=== PATIENT | female | born 1985 | race Caucasian/White ===

== ENCOUNTER 2018-06-01 23:26 | Emergency (ER) | payer MEDICAID ==
[~2018-06-01] VITALS: Ht 137.2 cm; Wt 78.4 kg
[~2018-06-01 23:26] MED LIST: PREN1TAB49
[2018-06-01 23:29] VITALS: Ht 137.2 cm; Wt 78.4 kg
[2018-06-02] MEDS ORDERED: ONDANSETRON 4 MG INJ IV STA (00:12)
[2018-06-02] MEDS ORDERED: SOD CHLORIDE 0.9% 1,000 ML IV ONE (00:30)
--- NOTE | 2018-06-02 00:31 | ERD ---
ER Documentation Chief Complaint Chief Complaint suprapubic pain x a week,vomiting x 3 weeks,hx DM HPI This is a 32-year-old female presents here in the emergency department with complaints of suprapubic pain that is on and off for about 3 weeks. Nauseated but no vomiting. LMP: Stated that she has tubal ligation. A0. Denies headache, head injury, loss of consciousness, dizziness, neck pain, neck stiffness, throat pain, difficulty swallowing, difficulty breathing lying flat, shoulder pain, chest pain, back pain, abdominal pain, constipation, diarrhea, urinary symptoms, or possibility being , loss of bowel and bladder control, trauma, injury, falls, difficulty walking due to pain, numbness or tingling sensation, calf pain, recent travel, recent major surgery in the last 3 weeks, calf pain, recent long travel, recent exposure to any illness, recent antibiotic use in the last 3 months, fever, chills, seizures. Past medical history: Diabetes. Surgical history: Denies. Social: Denies smoking, use of alcoholic beverages, use of illegal drugs. ROS All systems reviewed and are negative except as per history of present illness. Medications Home Meds Active Scripts Ondansetron Hcl* (Zofran*) 4 Mg Tablet, 4 MG PO Q8H PRN for NAUSEA AND/OR VO MITING, #30 TAB Prov:VENUSILABANAMANDAAR F 06/02/18 Acetaminophen* (Tylophen*) 500 Mg Capsule, 1 CAP PO Q6H PRN for PAIN AND OR ELEVATED TEMP, #20 CAP Prov:PASILABAN,KLAR F 06/02/18 Ibuprofen* (Motrin*) 800 Mg Tab, 800 MG PO Q6H PRN for PAIN AND OR ELEVATED TEMP, #30 TAB Prov:PASILABAN,KLAR F 06/02/18 Reported Medications Vits W-Ca,Fe,Fa(<1MG) () 1 Tab Tablet 06/20/09 Allergies Allergies: Coded Allergies: No Known Drug Allergy (Verified Allergy, Mild, 06/20/09) PMhx/Soc History of Surgery: No Hx Neurological Disorder: No Hx Respiratory Disorders: No Hx Cardiac Disorders: No Hx Miscellaneous Medical Probl: No Hx Alcohol Use: No Hx Substance Use: No Hx Tobacco Use: No Physical Exam Vitals Vital Signs Date Temp Pulse Resp B/P (MAP) Pulse Ox O2 O2 Flow FiO2 Time Delivery Rate 06/02/18 98.3 72 17 102/66 100 Room Air 04:19 (78) 06/02/18 98.1 71 18 99/57 (71) 100 Room Air 01:28 06/01/18 98.0 65 18 104/70 100 23:29 (81) Physical Exam Const: No acute distress Head: Atraumatic Eyes: Normal Conjunctiva ENT: Normal External Ears, Nose and Mouth. Neck: Full range of motion. No meningismus. Resp: Clear to auscultation bilaterally Cardio: Regular rate and rhythm, no murmurs Abd: Soft, non tender, non distended. Normal bowel sounds. No abdominal tenderness. No CVA tenderness. Skin: No petechiae or rashes Back: No midline or flank tenderness Ext: No cyanosis, or edema Neur: Awake and alert. No neurological deficits. Psych: Normal Mood and Affect Result Diagram: 06/02/18 0030 06/02/18 0030 Results 24 hrs Laboratory Tests Test 06/02/18 00:30 White Blood Count 11.8 10^3/ul Red Blood Count 4.77 10^6/ul Hemoglobin 12.8 g/dl Hematocrit 39.0 % Mean Corpuscular Volume 81.8 fl Mean Corpuscular Hemoglobin 26.8 pg Mean Corpuscular Hemoglobin Concent 32.8 g/dl Red Cell Distribution Width 15.9 % Platelet Count 322 10^3/UL Mean Platelet Volume 10.1 fl Immature Granulocytes % 0.300 % Neutrophils % % Segmented Neutrophils % (Manual) 50 % Lymphocytes % % Lymphocytes % (Manual) 38 % Monocytes % % Monocytes % (Manual) 10 % Eosinophils % % Eosinophils % (Manual) 2 % Basophils % % Nucleated Red Blood Cells % 0.0 /100WBC Immature Granulocytes # 0.030 10^3/ul Neutrophils # 10^3/ul Lymphocytes (Manual) 4.4 10^3/ul Lymphocytes # 10^3/ul Monocytes # 10^3/ul Monocytes # (Manual) 1.1 10^3/ul Eosinophils # 10^3/ul Basophils # 10^3/ul Nucleated Red Blood Cells # 10^3/ul Platelet Estimate NORMAL Urine Color YELLOW Urine Clarity CLEAR Urine pH 6.0 Urine Specific Hammond 1.017 Urine Ketones NEGATIVE mg/dL Urine Nitrite NEGATIVE mg/dL Urine Bilirubin NEGATIVE mg/dL Urine Urobilinogen NEGATIVE mg/dL Urine Leukocyte Esterase NEGATIVE Alvaro/ul Urine Hemoglobin NEGATIVE mg/dL Urine Glucose NEGATIVE mg/dL Urine Total Protein NEGATIVE mg/dl Sodium Level 140 mmol/L Potassium Level 4.0 mmol/L Chloride Level 101 mmol/L Carbon Dioxide Level 28 mmol/L Anion Gap 11 Blood Urea Nitrogen 18 mg/dl Creatinine 0.84 mg/dl Est Glomerular Filtrat Rate mL/min > 60 mL/min Glucose Level 94 mg/dl Calcium Level 9.6 mg/dl Total Bilirubin 0.0 mg/dl Direct Bilirubin 0.00 mg/dl Indirect Bilirubin 0.0 mg/dl Aspartate Amino Transf (AST/SGOT) 24 IU/L Alanine Aminotransferase (ALT/SGPT) 21 IU/L Alkaline Phosphatase 70 IU/L Total Protein 7.8 g/dl Albumin 4.4 g/dl Globulin 3.40 g/dl Albumin/Globulin Ratio 1.29 Current Medications Medications Dose Sig/Pat Start Time Status Last (Trade) Ordered Route PRN Stop Time Admin Dose Reason Admin Sodium 1,000 ml @ Q1H ONCE 06/02/18 DC 06/02/18 Chloride 1,000 mls/hr IV 00:30 00:27 06/02/18 01:29 Ondansetron 4 mg ONCE STAT 06/02/18 DC 06/02/18 HCl (Zofran IV 00:12 00:27 Inj) 06/02/18 00:14 Procedures/MDM Diagnostic tests: POC urine : Not done. Patient has history of tubal ligation. Urinalysis: Reviewed. Culture urine: Sent. Blood works: Reviewed. CT of the abdomen pelvis without contrast: 1. No acute intra-abdominal or intrapelvic pathology. 2. Moderate retained fecal matter in the colon suggesting constipation. Please note that in the absence of intravenous contrast the study does not evaluate the patency of the vasculature. Treatment: Saline lock. Normal saline IV bolus. Zofran IV. Re-evaluation: Denies pain. No episode of emesis here in the emergency department. No abdominal tenderness. Stated that she feels much better at this time and that she is ready to go home. Differential diagnosis I have low suspicion for pancreatitis, cholecystitis, diverticulitis, bowel obstruction, appendicitis, pyelonephritis, nephrolithiasis, obstructing kidney stones, severe dehydration. Final diagnosis: Abdominal pain. Constipation. Prescription: Colace. Motrin. Tylenol. Zofran. Follow-up with PCP in the next 24-48 hours. Come back here in the emergency department for any new symptoms or any worsening symptoms. All questions and concerns were answered. Patient and family members verbalized understanding and agreed with plan of care. Hemodynamically stable on discharge. Departure Diagnosis: Primary Impression: Abdominal pain Additional Impression: Constipation Condition: Stable Additional Instructions: Follow-up with PCP in the next 24-48 hours. Come back here in the emergency department for any new symptoms or any worsening symptoms. KHADRA CARIAS Jun 02, 2018 00:31
[2018-06-02] MEDS ORDERED: ONDA4TAB8 PO (03:36)
[2018-06-02] MEDS ORDERED: ACET500C5 PO (03:36)
[2018-06-02] MEDS ORDERED: IBUP800T48 PO (03:36)
[2018-06-02 04:19] VITALS: BP 102/66; PULSE 72; RESP 17
== END 2018-06-02 04:19 | disposition home or self-care (01) ==
LOC: FTE 23:26
DX: R10.9 Unspecified abdominal pain (principal); E11.9 Type 2 diabetes mellitus without complications; K59.00 Constipation, unspecified
CPT/HCPCS: 74176; 80053; 81003; 85025; 87086; 96374; J2405; J7030; Z7502

== ENCOUNTER 2018-08-12 16:50 | Emergency (ER) | payer MEDICAID ==
[~2018-08-12] VITALS: Ht 154.9 cm; Wt 79.0 kg
[~2018-08-12 16:50] MED LIST changes: +ACET500C5 PO; +IBUP800T48 PO; +ONDA4TAB8 PO
[2018-08-12 17:07] VITALS: Ht 154.9 cm; Wt 79.0 kg
[2018-08-12] MEDS ORDERED: ACET500C5 PO (18:52)
[2018-08-12 19:04] VITALS: BP 130/60; PULSE 70; RESP 16
--- NOTE | 2018-08-12 19:34 | ERD ---
ER Documentation Chief Complaint Chief Complaint Chronic L heel pain X 1 yr, worse X 1 wk HPI 32-year-old female patient with a past medical history of diabetes to ED complaining of left heel pain that started about 1 year ago. States it has worsened in the last week. Reports that she fold the back part of her shoe and a half and wears this while she is working, and states that this feels better. Denies any fever, chills, loss sensation, loss of range of motion. States that she is constantly on her feet while working at [employer]. ROS All systems reviewed and are negative except as per history of present illness. Medications Home Meds Active Scripts Acetaminophen* (Tylophen*) 500 Mg Capsule, 1 CAP PO Q6H PRN for PAIN AND OR ELEVATED TEMP, #20 CAP Prov:SIRISHA MENDOZA PA-C 08/12/18 Ondansetron Hcl* (Zofran*) 4 Mg Tablet, 4 MG PO Q8H PRN for NAUSEA AND/OR VOMITING, #30 TAB Prov:PASSIDNEY,AMANDAAR F 06/02/18 Acetaminophen* (Tylophen*) 500 Mg Capsule, 1 CAP PO Q6H PRN for PAIN AND OR ELEVATED TEMP, #20 CAP Prov:PASILABAN,KLAR F 06/02/18 Ibuprofen* (Motrin*) 800 Mg Tab, 800 MG PO Q6H PRN for PAIN AND OR ELEVATED TEMP, #30 TAB Prov:PASILABAN,KLAR F 06/02/18 Reported Medications Vits W-Ca,Fe,Fa(<1MG) () 1 Tab Tablet 06/20/09 Allergies Allergies: Coded Allergies: No Known Drug Allergy (Verified Allergy, Mild, 06/20/09) PMhx/Soc Medical and Surgical Hx: pt denies Medical Hx, pt denies Surgical Hx History of Surgery: No Anesthesia Reaction: No Hx Neurological Disorder: No Hx Respiratory Disorders: No Hx Cardiac Disorders: No Hx Psychiatric Problems: No Hx Miscellaneous Medical Probl: No Hx Alcohol Use: No Hx Substance Use: No Hx Tobacco Use: No Smoking Status: Never smoker FmHx Family History: No diabetes, No coronary disease Physical Exam Vitals Vital Signs Date Temp Pulse Resp B/P (MAP) Pulse Ox O2 O2 Flow FiO2 Time Delivery Rate 08/12/18 98.5 70 16 130/60 100 Room Air 19:04 (83) 08/12/18 98.7 73 18 122/59 100 17:07 (80) Physical Exam Const: [id number]-veofbtzhq, well-nourished. In no acute distress. Head: Atraumatic, normocephalic Eyes: Normal Conjunctiva without injection ENT: Normal external ear, nose and mouth. Neck: Full range of motion. No meningismus. Resp: Clear to auscultation bilaterally. No wheezing, rhonchi, rales, or crackles. No accessory muscle use. No retractions. Cardio: Regular rate and rhythm, no murmurs Skin: No petechiae or rashes Back: No midline tenderness. No CVA tenderness. Ext: No cyanosis, or edema. Cap refill less than 2 seconds. Distal pulses intact bilaterally. Tenderness to palpation of the left heel. Achilles tendon intact. Full range of motion of the bilateral ankles and feet with extension, flexion, plantar flexion, dorsiflexion. Neur: Awake and alert. Normal gait and coordination. Muscle strength 5/5. Sensation intact bilaterally. Psych: Normal Mood and Affect Procedures/MDM 32-year-old female patient with a past medical history of diabetes presents to ED complaining of left heel pain. Patient is afebrile and nontoxic-appearing. Differentials include bone spur. Diabetic foot care instructions were given to patient. Low suspicion for Achilles tendon tear, Achilles tendinitis, fracture, dislocation, DVT, diabetic foot ulcer, excising fasciitis, compartment syndrome, fractures, or other emergent conditions. Diagnosis: Heel pain Discharge medications: Tylenol Follow up with primary care physician in 1-2 days. Instructed patient to return to the ED sooner for any worsening symptoms. Patient's questions were answered. Patient is hemodynamically stable. Patient understood and agreed with discharge plan. Patient discharged stable. Disclaimer: Inadvertent spelling and grammatical errors are likely due to EHR/dictation software use and do not reflect on the overall quality of patient care. Also, please note that the electronic time recorded on this note does not necessarily reflect the actual time of the patient encounter. Departure Diagnosis: Primary Impression: Heel pain Laterality: left Qualified Codes: M79.672 - Pain in left foot Condition: Stable Patient Instructions: Diabetes: Keeping Feet Healthy, Diabetes: Inspecting Your Feet, Foot Surgery: Bone Spurs, Diabetic Foot Care Referrals: COMMUNITY CLINICS YOU HAVE RECEIVED A MEDICAL SCREENING EXAM AND THE RESULTS INDICATE THAT YOU DO NOT HAVE A CONDITION THAT REQUIRES URGENT TREATMENT IN THE EMERGENCY DEPARTMENT. FURTHER EVALUATION AND TREATMENT OF YOUR CONDITION CAN WAIT UNTIL YOU ARE SEEN IN YOUR DOCTORS OFFICE WITHIN THE NEXT 1-2 DAYS. IT IS YOUR RESPONSIBILITY TO M ABHAY AN APPOINTMENT FOR FOLOW-UP CARE. IF YOU HAVE A PRIMARY DOCTOR --you should call your primary doctor and schedule an appointment IF YOU DO NOT HAVE A PRIMARY DOCTOR YOU CAN CALL OUR PHYSICIAN REFERRAL HOTLINE AT IF YOU CAN NOT AFFORD TO SEE A PHYSICIAN YOU CAN CHOSE FROM THE FOLLOWING [facility] [address] [facility] [address] [facility] [facility] [address] [facility] [facility] [address] [facility] [facility] [address] [facility]. [facility]. [address] [facility] [facility] YOU HAVE RECEIVED A MEDICAL SCREENING EXAM AND THE RESULTS INDICATE THAT YOU DO NOT HAVE A CONDITION THAT REQUIRES URGENT TREATMENT IN THE EMERGENCY DEPARTMENT. FURTHER EVALUATION AND TREATMENT OF YOUR CONDITION CAN WAIT UNTIL YOU ARE SEEN IN YOUR DOCTORS OFFICE WITHIN THE NEXT 1-2 DAYS. IT IS YOUR RESPONSIBILITY TO MAKE AN APPOINTMENT FOR FOLOW-UP CARE. IF YOU HAVE A PRIMARY DOCTOR --you should call your primary doctor and schedule and appointment IF YOU DO NOT HAVE A PRIMARY DOCTOR YOU CAN CALL OUR PHYSICIAN REFERRAL HOTLINE AT . IF YOU CAN NOT AFFORD TO SEE A PHYSICIAN YOU CAN CHOSE FROM THE FOLLOWING [facility]: [facility] [address] [place] [address] [facility] [address] [place] [address] [facility] [address] [place] [address] [facility] URGENT CARE/SPECIALTIES BRAKE REPAIRER [place] [id number] [facility] [address] [place] [address] OFFICE FAX , [facility] [address] [place], [place] [id number] [address] WADE, CO[place] [address] [place] [address] DR BYERS, [facility] [address] [facility], [address] [address] DR GARCESAMANDA, [facility] [address] [place] [address] [facility] [address] [place] [address] [address] [facility] [address] - [address] WADE, ILIANA [address], [place] [address] DR HOFFMAN, FABIAN [address] [facility] [address], [place] [address] DR COOL, FARID [address] [place], [place] [id number] Additional Instructions: Llame al doctor MAANA y romaine juana [place] PARA DENTRO DE 2-3 HART.Dgale a la secretaria que nosotros le instruimos hacer esta [place].Avise o llame si lee condicin se empeora antes de la [place]. Regresa aqui si peor o no mejor. SIRISHA MENDOZA PA-C Aug 12, 2018 19:34
== END 2018-08-12 19:04 | disposition home or self-care (01) ==
LOC: FTE 16:50
DX: M79.672 Pain in left foot (principal); E11.9 Type 2 diabetes mellitus without complications
CPT/HCPCS: 99282